=== PATIENT | female | born 1985 | race Two or more races ===

== ENCOUNTER 2022-04-11 15:13 | Outpatient (CLI) | payer OTHER, SELFPAY ==
--- NOTE | ~2022-04-11 | XR_ITS ---
EXAMINATION: XR chest 2V DATE: 04/11/2022 15:36 INDICATION: Latent tuberculosis TECHNIQUE: PA and lateral views of the chest were obtained. COMPARISON: None FINDINGS: The lungs are clear with no focal airspace opacities, pulmonary edema, pleural effusion or pneumothor ax. The cardiomediastinal silhouette is normal. Plate and screw fixation along the cephalad aspect of the left clavicle. Minimal thoracic levocurvature with mild spondylosis. Mild anterior wedging of a few upper thoracic vertebral bodies. IMPRESSION: 1. Clear lungs. No acute cardiopulmonary disease. Reviewed, dictated and finalized at location A. ENTION COORDINATOR
== END 2022-04-11 15:14 | disposition home or self-care (01) ==
LOC: ANHIMG 15:21
PROVIDERS: PCP Nurse Practitioner Psychiatric/Mental Health; Visit Provider Nurse Practitioner Psychiatric/Mental Health
DX: Z22.7 Latent tuberculosis (principal)
CPT/HCPCS: 71046